=== PATIENT | female | born 1950 | race Caucasian/White ===

== ENCOUNTER → 2016-08-22 | Day surgery (SDC) | payer MEDICARE, OTHER ==
[~2016-08-22] VITALS: Ht 162.6 cm; Wt 87.7 kg
[~2016-08-22] MED LIST: ATIVAN2 MG PO; CARAFATE1 GM PO; EFFEXOR XR150 MG PO; LOPRESSOR25 MG PO; OMEPRAZOLE40 MG PO; PEPCID40 MG PO; TYLENOL325 MG PO; VITAMIN D-32000 UNI1 PO; VITAMIN D250000 UNIT PO; ZOCOR20 MG PO
[2016-08-22 08:41] LABS: BILIRUBIN URINE NEGATIVE (NEGATIVE); BLOOD URINE NEGATIVE /UL (NEGATIVE); COLOR URINE YELLOW (YELLOW); GLUCOSE URINE NEGATIVE (NEGATIVE); KETONE URINE NEGATIVE (NEGATIVE); LEUKOCYTES URINE 100 /UL (NEGATIVE); NITRITE URINE NEGATIVE (NEGATIVE); PROTEIN URINE NEGATIVE (NEGATIVE); UROBILINOGEN URINE NORMAL (NORMAL)
[2016-08-22 08:54] LABS: TURBIDITY URINE CLEAR (CLEAR)
[2016-08-22 08:57] LABS: ALBUMIN 3.9 gm/dL (3.5-5.0); CALCIUM 8.4 mg/dL (8.5-10.5); CREATININE 1.1 mg/dL (0.5-1.1); PHOSPHORUS 2.9 mg/dL (2.5-4.9)
[2016-08-22 09:05] LABS: BACTERIA URINE MODERATE (NEGATIVE); RBC URINE NEGATIVE #/HPF (NEGATIVE)
[2016-08-22 09:06] LABS: MUCUS URINE 1+ (NEGATIVE)
== END | disposition disaster alternative care site (69) ==
LOC: GPOC 08-21 15:00 → GEND 08:01 → GPOC 15:00
PROVIDERS: Registered Nurse
PROC: 0DB58ZX Excision of Esophagus, Via Natural or Artificial Opening Endoscopic, Diagnostic (ICD-10-PCS; principal; 2016-08-22)
PROC: 0DB68ZX Excision of Stomach, Via Natural or Artificial Opening Endoscopic, Diagnostic (ICD-10-PCS; 2016-08-22)
PROC: 0D748ZZ Dilation of Esophagogastric Junction, Via Natural or Artificial Opening Endoscopic (ICD-10-PCS; 2016-08-22)
DX: R13.10 Dysphagia, unspecified (principal); K31.89 Other diseases of stomach and duodenum; K20.9 Esophagitis, unspecified; E78.5 Hyperlipidemia, unspecified; N18.4 Chronic kidney disease, stage 4 (severe); Z87.442 Personal history of urinary calculi; Z90.49 Acquired absence of other specified parts of digestive tract; Z98.890 Other specified postprocedural states
CPT/HCPCS: C1726; J2001; J7030